=== PATIENT | female | born 1990 | race Caucasian/White ===

== ENCOUNTER 2017-11-20 18:51 | Emergency (ER) | payer BC ==
[2017-11-20] MEDS ORDERED: SODIUM CHLORIDE 0.9% 500 ML IV ONE (21:29)
[2017-11-20 22:12] LABS: Basophils # (A) 0.1 k/uL (0-0.2); Basophils % (A) 0 %; Eosinophils # (A) 0.1 k/uL (0-0.7); Eosinophils % (A) 1 %; HCT 39.1 % (34.0-46.0); HGB 12.8 gm/dL (11.4-16.0); Lymphocytes # (A) 3.1 k/uL (1.0-4.8); Lymphocytes % (A) 21 %; MCH 25.5 pg (25.0-35.0); MCHC 32.8 g/dL (31.0-37.0); MCV 77.7 fL (80.0-100.0); Mean Platelet Volume 6.6; Monocytes # (A) 0.7 k/uL (0-1.0); Monocytes % (A) 5 %; Neutrophils # (A) 10.2 k/uL (1.3-7.7); Neutrophils % (A) 71 %; Platelet Count 410 k/uL (150-450); RBC 5.04 m/uL (3.80-5.40); RDW 14.2 % (11.5-15.5); WBC 14.4 k/uL (3.8-10.6)
[2017-11-20 22:18] LABS: Appearance,Urine Cloudy (Clear); Bacteria,Urine Occasional /hpf; Bilirubin,Urine Negative (Negative); Blood,Urine Trace (Negative); Color,Urine Yellow; Glucose,Urine (UA) Negative (Negative); Ketones,Urine Negative (Negative); Leukocyte Esterase,Urine Trace (Negative); Mucus,Urine Occasional /hpf; Nitrite,Urine Negative (Negative); PH, Urine 5.5 (5.0-8.0); Protein,Urine Negative (Negative); RBC,Urine 1 /hpf (0-5); Specific Gravity,Urine 1.012 (1.001-1.035); Squamous Epithelial Cell,Urine 2 /hpf (0-4); Urobilinogen,Urine <2.0 mg/dL (<2.0); WBC,Urine 2 /hpf (0-5)
--- NOTE | 2017-11-20 22:27 | ED ---
Chest Pain HPI - General Chief Complaint: Chest Pain Stated Complaint: Chest pain Time Seen by Provider: 11/20/17 20:12 Source: patient Mode of arrival: ambulatory Limitations: no limitations - History of Present Illness Initial Comments: 27-year-old female patient presents the emergency department today for evaluation of substernal chest pain. Patient states that the pain started earlier today. Patient states she became worried when she started to have tingling from her elbow down to her fingertips. Patient denies any shortness of breath with this. States she has been nauseated for the last couple of weeks. She denies any heartburn. Only past medical history is asthma for which takes Singulair, albuterol, Flonase, and Sabrina. She states that she has not been having problems with her asthma. Denies any cough or congestion. She has not had any fevers or chills. Denies any abdominal pain or back pain. She denies any recent travel or long car rides. Denies use of control, states she stopped taking in August. Denies any calf pain or tenderness. She states she did see her primary care physician for her episodes similar to this a few months ago and with this episode and she told her it was related to anxiety and started her on BuSpar. Patient states she has been stressed out recently but does not feel particularly anxious. Patient denies any recent rash , diarrhea, constipation, back pain, dizziness, weakness, hematuria, dysuria, urinary urgency, urinary frequency, headache, visual changes, or any other complaints. - Related Data Home Medications Medication Instructions Recorded Confirmed Fexofenadine HCl [Sabrina Allergy] 180 mg PO DAILY 10/07/13 11/20/17 Fluticasone Propionate [Flonase] 1 spray EA NOSTRIL BID 10/07/13 11/20/17 Montelukast Sodium [Singulair] 10 mg PO HS 10/07/13 11/20/17 Fluticasone/Vilanterol [Breo 1 puff INHALATION RT-DAILY 11/20/17 11/20/17 Ellipta 100-25 Mcg Inhaler] Folic Acid 1 mg PO DAILY 11/20/17 11/20/17 busPIRone HCl [Buspar] 10 mg PO BID PRN 11/20/17 11/20/17 Allergies Allergy/AdvReac Type Severity Reaction Status Date / Time No Known Allergies Allergy Verified 11/20/17 20:20 Review of Systems ROS Statement: Those systems with pertinent positive or pertinent negative responses have been documented in the HPI. ROS Other: All systems not noted in ROS Statement are negative. EKG Findings - EKG Comments: EKG Findings:: EKG obtained at 1904 shows sinus rhythm with marked sinus arrhythmia. Ventricular rate is 86, VA interval 128, QR baptism 78, QT 356 , QTC 426. No evidence of ST elevation or depression. Past Medical History Past Medical History: Asthma History of Any Multi-Drug Resistant Organisms: None Reported Past Surgical History: No Surgical Hx Reported Past Psychological History: Anxiety Smoking Status: Never smoker Past Alcohol Use History: None Reported Past Drug Use History: None Reported General Exam Limitations: no limitations General appearance: alert, in no apparent distress, other (This is a well- developed, well-nourished adult female patient in no acute distress. Vital signs upon presentation are temperature 98.6F, pulse 112, respirations 20, blood pressure 175/135, pulse ox 99% on room air.) Eye exam: Present: normal appearance, PERRL, EOMI. Absent: scleral icterus, conjunctival injection, periorbital swelling ENT exam: Present: normal exam, normal oropharynx, mucous membranes moist Respiratory exam: Present: normal lung sounds bilaterally. Absent: respiratory distress, wheezes, rales, rhonchi, stridor, chest wall tenderness Cardiovascular Exam: Present: normal rhythm, tachycardia, normal heart sounds. Absent: systolic murmur, diastolic murmur, rubs, gallop, clicks GI/Abdominal exam: Present: soft, normal bowel sounds. Absent: distended, tenderness, guarding, rebound, rigid Neurological exam: Present: alert, oriented X3, CN II-XII intact Psychiatric exam: Present: normal affect, normal mood Skin exam: Present: warm, dry, intact, normal color. Absent: rash Course Vital Signs 11/20/17 11/20/17 11/20/17 18:54 22:01 22:58 Temperature 98.6 F Pulse Rate 112 H 83 73 Respiratory 20 18 18 Rate Blood Pressure 175/135 142/100 144/89 O2 Sat by Pulse 99 97 100 Oximetry 11/20/17 23:52 Temperature 98.4 F Pulse Rate 80 Respiratory 16 Rate Blood Pressure 137/88 O2 Sat by Pulse 97 Oximetry Chest Pain MDM - [facility] RADIOLOGY:Two-view x-ray of the chest was obtained. Heart and mediastinum are normal. Lungs are clear. Diaphragm is normal. There are chest leads. Impression by Dr. Beasley shows all chest with no change. MDM: 27-year-old female patient presented to the emergency department today for evaluation of crampy chest pain been going on since Friday. Patient states that the pain was intermittent since then. Patient does have history of anxiety and is treated with BuSpar. She has one episode similar to this in the past. Physical examination is unremarkable. Chest x-ray shows no acute cardiopulmonary process. Labs reviewed and were unremarkable. Troponin was negative. D-dimer is negative. I did discuss results and findings with the patient. We did discuss anxiety versus GERD versus muscle spasms as a cause for her pain. She is instructed to follow-up with her primary care physician for further evaluation as soon as possible. Return parameters discussed in detail. She verbalizes understanding and agrees this plan. Disposition Clinical Impression: Chest pain Disposition: HOME SELF-CARE Condition: Good Instructions: Chest Pain (ED) Additional Instructions: Follow-up with her primary care physician for recheck in 1-2 days. Return here immediately for any new, worsening, or concerning symptoms. Is patient prescribed a controlled substance at d/c from ED?: No Referrals: Isabella Husain DO [Primary Care Provider] - 1-2 days Time of Disposition: 23:47
[2017-11-20 22:28] LABS: D-Dimer 0.31 mg/L FEU (<0.60); Partial Thromboplastin Time 26.9 sec (22.0-30.0); Prothrombin Time 10.1 sec (9.0-12.0)
[2017-11-20 22:35] LABS: Creatine Kinase 47 U/L (30-135)
[2017-11-20 22:37] LABS: ALT 31 U/L (9-52); AST 13 U/L (14-36); Albumin 4.2 g/dL (3.5-5.0); Alkaline Phosphatase 112 U/L (38-126); Anion Gap 11 mmol/L; Blood Urea Nitrogen 10 mg/dL (7-17); Calcium 9.4 mg/dL (8.4-10.2); Carbon Dioxide 23 mmol/L (22-30); Chloride 106 mmol/L (98-107); Glucose 87 mg/dL (74-99); Potassium 4.3 mmol/L (3.5-5.1); Sodium 140 mmol/L (137-145); Total Bilirubin 0.4 mg/dL (0.2-1.3); Total Protein 6.8 g/dL (6.3-8.2)
--- NOTE | 2017-11-20 22:45 | XR ---
EXAMINATION TYPE: XR chest 2V DATE OF EXAM: 11/20/2017 COMPARISON: 09/24/2015 HISTORY: Chest pain TECHNIQUE: Frontal and lateral views of the chest are obtained. FINDINGS: Heart and mediastinum are normal. Lungs are clear. Diaphragm is normal. There are chest le ads. IMPRESSION: Normal chest. No change.
[2017-11-20 22:47] LABS: Creatine Kinase MB 0.4 ng/mL (0.0-2.4); Troponin I <0.012 ng/mL (0.000-0.034)
[2017-11-21] VITALS: BP 137/88; PULSE 80; RESP 16; TEMP 98.4
== END 2017-11-20 23:55 | disposition home or self-care (01) ==
LOC: EC 18:51
DX: R07.9 Chest pain, unspecified (principal); F41.9 Anxiety disorder, unspecified; R11.0 Nausea; J45.909 Unspecified asthma, uncomplicated; Z79.51 Long term (current) use of inhaled steroids; Z79.899 Other long term (current) drug therapy
CPT/HCPCS: 36415; 71046; 80053; 81001; 81025; 82550; 82553; 84484; 85025; 85379; 85610; 85730; 93005; 96360; 96361; 99285

== ENCOUNTER → 2018-04-29 | Outpatient (CLI) | payer BC ==
[2018-04-29 18:30] LABS: HCT 43.2 % (34.0-46.0); HGB 14.3 gm/dL (11.4-16.0); MCH 26.4 pg (25.0-35.0); MCHC 33.1 g/dL (31.0-37.0); MCV 79.6 fL (80.0-100.0); Platelet Count 441 k/uL (150-450); RBC 5.42 m/uL (3.80-5.40); RDW 14.8 % (11.5-15.5); WBC 9.9 k/uL (3.8-10.6)
== END | disposition home or self-care (01) ==
LOC: LABWHC1 17:03
PROVIDERS: ATTEND Obstetrics & Gynecology
DX: Z34.01 Encounter for supervision of normal first pregnancy, first trimester (principal)
CPT/HCPCS: 36415; 82565; 82947; 85027; 86762; 86780; 86850; 86900; 86901; 87340

== ENCOUNTER 2018-09-03 16:53 | Outpatient (CLI) | payer BC ==
[2018-09-03 17:54] VITALS: BP 136/84; PULSE 99; RESP 16; TEMP 97.7
--- NOTE | 2018-09-03 20:58 | P.MSEPDOC ---
Presenting Problems - Arrival Data Date of Arrival on Unit: 09/03/18 Time of Arrival on Unit: 16:53 Mode of Transport: Ambulatory - Complaint OB-Reason for Admission/Chief Complaint: PIH Medical History - Information : 1 Para: 0 Term: 0 : 0 Abortions: Spontaneous or Elective: 0 Number of Living Children: 0 - Gestational Age Gestational Age by SHAAN (wks/days): 28 Weeks and 3 Days - History Comment: "fetus has small abd per U/S at [facility]" Review of Systems - Review of Systems Constitutional: No problems Breast: No problems ENT: No problems Cardiovascular: No problems Respiratory: No problems Gastrointestinal: No problems Genitourinary: No problems Musculoskeletal: No problems Neurological: No problems Skin: No problems Vital Signs - Temperature Temperature: 97.7 F Temperature Source: Temporal Artery Scan - Pulse Right Sitting Pulse Rate: 99 Pulse Assessment Method: Automatic Cuff - Respirations Respiratory Rate: 16 Oxygen Delivery Method: Room Air - Blood Pressure Right Arm Blood Pressure: 136/84 Blood Pressure Mean: 101 Blood Pressure Source: Automatic Cuff Medical Screen Scoring (Pre) - Cervical Exam Dilation: Exam Deferred Effacement: Exam Deferred Membranes: Intact - Uterine Contractions Frequency: N/A Duration: N/A Intensity: N/A - Maternal Vital Signs Maternal Temperature: N/A Maternal Blood Pressure: N/A Signs of Preeclampsia: N/A Maternal Respirations: N/A - Pain Assessment Pain Intensity: 0 Pain Behavior: None Exhibited - Maternal Trauma Maternal Trauma: N/A - Assessment Baseline FHR: 135 Heart Rate - NICHD Category: Category I (Normal) = 0 NST: Reactive Position: N/A Station: N/A - Total Score Total Score (Pre): 0 - Level of Risk Level of Risk: Low (0-5) Physician Notification (Pre) - Physician Notified Physician Notified Date: 09/03/18 Physician Notified Time: 17:50 Physician/Practitioner Notifed:: Kenan Urbina Order Received: Yes (d/c home) Disposition - Disposition OB Disposition: Discharge to home Discharge Date: 09/03/18 Discharge Time: 17:55 I agree with the RN Medical Screening Exam: Yes Risk & Benefit of care provided described in d/c instruction: Yes Diagnosis: 28 WEEKS GESTATION OF
== END 2018-09-03 17:55 | disposition home or self-care (01) ==
LOC: FBPOP 16:53
PROVIDERS: ATTEND Obstetrics & Gynecology
DX: O13.3 Gestational [pregnancy-induced] hypertension without significant proteinuria, third trimester (principal); Z3A.28 28 weeks gestation of pregnancy
CPT/HCPCS: 59025; 99213

== ENCOUNTER 2018-09-17 11:47 | Outpatient (CLI) | payer BC ==
[2018-09-17 12:48] LABS: Appearance,Urine Cloudy (Clear); Bacteria,Urine Rare /hpf; Bilirubin,Urine Negative (Negative); Blood,Urine Negative (Negative); Color,Urine Light Yellow; Glucose,Urine (UA) Negative (Negative); Ketones,Urine Negative (Negative); Leukocyte Esterase,Urine Small (Negative); Nitrite,Urine Negative (Negative); Protein,Urine Negative (Negative); Specific Gravity,Urine 1.004 (1.001-1.035); Squamous Epithelial Cell,Urine 11 /hpf (0-4); Urobilinogen,Urine <2.0 mg/dL (<2.0); WBC,Urine 3 /hpf (0-5)
[2018-09-17 13:03] VITALS: BP 132/84; PULSE 96; RESP 20; TEMP 98.2
[2018-09-17] MEDS ORDERED: ACETAMINOPHEN TAB 325 MG TAB PO STA (13:04)
[2018-09-17 13:16] LABS: Basophils % (A) 0 %; Eosinophils # (A) 0.1 k/uL (0-0.7); Eosinophils % (A) 1 %; HCT 39.2 % (34.0-46.0); HGB 12.7 gm/dL (11.4-16.0); Lymphocytes # (A) 2.5 k/uL (1.0-4.8); Lymphocytes % (A) 17 %; MCH 27.4 pg (25.0-35.0); MCHC 32.4 g/dL (31.0-37.0); MCV 84.8 fL (80.0-100.0); Mean Platelet Volume 7.2; Monocytes # (A) 0.5 k/uL (0-1.0); Monocytes % (A) 4 %; Neutrophils % (A) 77 %; Platelet Count 389 k/uL (150-450); RBC 4.63 m/uL (3.80-5.40); RDW 14.1 % (11.5-15.5); WBC 14.4 k/uL (3.8-10.6)
[2018-09-17 13:26] LABS: ALT 29 U/L (9-52); AST 17 U/L (14-36); Blood Urea Nitrogen 5 mg/dL (7-17); LDH 492 U/L (313-618); Uric Acid 4.2 mg/dL (3.7-7.4)
--- NOTE | 2018-09-17 17:06 | P.MSEPDOC ---
Presenting Problems - Arrival Data Date of Arrival on Unit: 09/17/18 Time of Arrival on Unit: 10:27 Mode of Transport: Ambulatory - Complaint Comment: pt seen in office for a b/p check and pt c/o a headache. pt sent over to triage from Dr. Miller to be evualted Medical History - Information : 1 Para: 0 Term: 0 : 0 Abortions: Spontaneous or Elective: 0 Number of Living Children: 0 - Gestational Age Gestational Age by SHAAN (wks/days): 30 Weeks and 3 Days Review of Systems - Review of Systems Constitutional: No problems Breast: No problems ENT: No problems Cardiovascular: No problems Respiratory: No problems Gastrointestinal: No problems Genitourinary: No problems Musculoskeletal: No problems Neurological: No problems Skin: No problems Vital Signs - Temperature Temperature: 98.2 F Temperature Source: Oral - Pulse Right Brachial Pulse Rate: 96 Pulse Assessment Method: Automatic Cuff - Respirations Respiratory Rate: 20 Oxygen Delivery Method: Room Air - Blood Pressure Right Arm Blood Pressure: 132/84 Blood Pressure Mean: 100 Blood Pressure Source: Automatic Cuff Medical Screen Scoring (Pre) - Cervical Exam Dilation: Exam Deferred Effacement: Exam Deferred Membranes: Intact - Uterine Contractions Frequency: N/A Duration: N/A Intensity: N/A - Maternal Vital Signs Maternal Temperature: N/A Maternal Blood Pressure: N/A Signs of Preeclampsia: Headache = 1, Nausea/Vomiting = 1 Maternal Respirations: N/A - Pain Assessment Pain Location and Character: Head Pain Scale Used: Numeric (1 - 10) Pain Intensity: 6 Pain Management Goal: 2 Pain Description: Throbbing Pain Radiation Location: n/a Pain Frequency: Constant Pain Behavior: Vocalization Pain Aggravating Factors: Activity Non-Pharmacological Interventions: Reduce Environmental Stimuli - Maternal Trauma Maternal Trauma: N/A - Assessment Baseline FHR: 130 Heart Rate - NICHD Category: Category I (Normal) = 0 - Total Score Total Score (Pre): 2 Medical Screen Scoring (Post) - Post Treatment Level of Risk Post Treatment Level of Risk: Low (0-5) Physician Notification (Post) - Physician Notified Physician Notified Date: 09/17/18 Physician Notified Time: 14:45 Spoke With: dr miller New Order Received: Yes - Notification Comment Comment: NST reactive B/P 137/[address] Miller. May discharge to home undelivered with instructions and to keep nexrt scheduled appointment with Dr Grayson Disposition - Disposition OB Disposition: Discharge to home Discharge Date: 09/17/18 Discharge Time: 14:48 I agree with the RN Medical Screening Exam: Yes Risk & Benefit of care provided described in d/c instruction: Yes Diagnosis: GESTATIONAL HTN W/O SIGNIFICANT PROTEINURIA, THIRD TRIMESTER
== END 2018-09-17 14:48 | disposition home or self-care (01) ==
LOC: FBPOP 11:47
PROVIDERS: ATTEND Obstetrics & Gynecology
DX: O13.3 Gestational [pregnancy-induced] hypertension without significant proteinuria, third trimester (principal); Z3A.30 30 weeks gestation of pregnancy
CPT/HCPCS: 59025; 81001; 82565; 82570; 83615; 84156; 84450; 84460; 84520; 84550; 85025; 99215

== ENCOUNTER 2018-09-20 20:50 | Observation (INO) | payer BC ==
[2018-09-20] MEDS ORDERED: ACETAMINOPHEN TAB 500 MG TAB PO PRN (22:10)
[2018-09-20 22:15] VITALS: BMI 47.3
[2018-09-20 22:46] LABS: Basophils % (A) 0 %; Eosinophils # (A) 0.1 k/uL (0-0.7); Eosinophils % (A) 1 %; HCT 42.2 % (34.0-46.0); HGB 14.1 gm/dL (11.4-16.0); Lymphocytes % (A) 23 %; MCH 28.5 pg (25.0-35.0); MCHC 33.4 g/dL (31.0-37.0); MCV 85.3 fL (80.0-100.0); Mean Platelet Volume 6.7; Monocytes # (A) 0.7 k/uL (0-1.0); Monocytes % (A) 5 %; Neutrophils # (A) 9.3 k/uL (1.3-7.7); Neutrophils % (A) 69 %; Platelet Count 408 k/uL (150-450); RBC 4.95 m/uL (3.80-5.40); RDW 14.2 % (11.5-15.5); WBC 13.5 k/uL (3.8-10.6)
[2018-09-20 22:59] LABS: ALT 22 U/L (9-52); AST 13 U/L (14-36); Blood Urea Nitrogen 6 mg/dL (7-17); LDH 320 U/L (313-618); Uric Acid 3.8 mg/dL (3.7-7.4)
[2018-09-21 00:04] LABS: Appearance,Urine Clear (Clear); Bilirubin,Urine Negative (Negative); Blood,Urine Negative (Negative); Color,Urine Yellow; Glucose,Urine (UA) Negative (Negative); Ketones,Urine Negative (Negative); Leukocyte Esterase,Urine Negative (Negative); Nitrite,Urine Negative (Negative); Protein,Urine Negative (Negative); Specific Gravity,Urine 1.016 (1.001-1.035); Urobilinogen,Urine <2.0 mg/dL (<2.0)
[2018-09-21 08:39] VITALS: BP 122/74; PULSE 91; RESP 16; TEMP 96.6
--- NOTE | 2018-09-21 08:43 | P.HPOB ---
History of Present Illness H&P Date: 09/21/18 Chief Complaint: hypertension at home 28 year old presented to triage at 30 weeks 6 days complaining of increased BP at home. She has been checking her BP at home with a wrist cuff since a visit with [facility] where her BP was slightly elevated. She says last night it was 150/90 and so she came in. She has intermittent headaches but no vision changes or RUQ pain. good movement. no contractions. FHTs 130's with moderate variability and accels. Dr Leiva admitted her to watch her BPs overnight. Labs were drawn and normal. Review of Systems All systems: negative Constitutional: Denies chills, Denies fever Eyes: denies blurred vision, denies pain Ears, nose, mouth and throat: Denies headache, Denies sore throat Cardiovascular: Denies chest pain, Denies shortness of breath Respiratory: Denies cough Gastrointestinal: Denies abdominal pain, Denies diarrhea, Denies nausea, Denies vomiting Genitourinary: Denies dysuria, Denies hematuria Musculoskeletal: Denies myalgias Integumentary: Denies pruritus, Denies rash Neurological: Denies numbness, Denies weakness Psychiatric: Denies anxiety, Denies depression Endocrine: Denies fatigue, Denies weight change Past Medical History Past Medical History: Asthma History of Any Multi-Drug Resistant Organisms: None Reported Past Surgical History: No Surgical Hx Reported Past Anesthesia/Blood Transfusion Reactions: No Reported Reaction Past Psychological History: Anxiety Smoking Status: Never smoker Past Alcohol Use History: None Reported Past Drug Use History: None Reported - Past Family History Father Family Medical History: Diabetes Mellitus Medications and Allergies Home Medications Medication Instructions Recorded Confirmed Type Montelukast Sodium [Singulair] 10 mg PO HS 10/07/13 09/20/18 History Fluticasone/Vilanterol [Breo 1 puff INHALATION RT-DAILY 11/20/17 09/20/18 History Ellipta 100-25 Mcg Inhaler] Fexofenadine HCl [Sabrina Allergy] 60 tab PO DAILY 09/20/18 09/20/18 History Allergies Allergy/AdvReac Type Severity Reaction Status Date / Time No Known Allergies Allergy Verified 09/20/18 20:58 Exam Osteopathic Statement: *. No significant issues noted on an osteopathic structural exam other than those noted in the History and Physical/Consult. Vital Signs Temp Pulse Resp BP Pulse Ox 09/21/18 08:00 96.6 F L 91 16 122/74 09/21/18 04:00 88 14 109/59 09/21/18 00:00 97.2 F L 85 16 139/83 09/20/18 22:08 97.3 F L 91 16 120/66 09/20/18 21:40 88 121/81 09/20/18 21:01 97.3 F L 102 H 18 126/83 97 Intake and Output 09/20/18 09/21/18 09/21/18 22:59 06:59 14:59 Other: # Voids 1 1 Weight 125.191 kg Heart: Regular rate and rhythm Lungs: Clear to auscultation bilaterally Abdomen: Soft, nontender Extremities: Negative Homans sign Results Result Diagrams: 09/20/18 22:31 09/20/18 22:31 Abnormal Lab Results - Last 24 Hours (Table) 09/20/18 09/20/18 09/20/18 Range/Units 22:31 22:31 23:34 WBC 13.5 H (3.8-10.6) k/uL Neutrophils # 9.3 H (1.3-7.7) k/uL BUN 6 L (7-17) mg/dL Creatinine 0.40 L (0.52-1.04) mg/dL AST 13 L (14-36) U/L U Random Total Protein 17 H (<12) mg/dL Assessment and Plan (1) Gestational hypertension Current Visit: Yes Status: Acute Code(s): O13.9 - GESTATIONAL HTN W/O SIG NIFICANT PROTEINURIA, UNSP TRIMESTER SNOMED Code(s): 824079442 Plan: 1. Patient was admitted to [facility] by Dr. Leiva to monitor her blood pressures and do a 24-hour urine protein
--- NOTE | 2018-09-21 08:47 | P.DS ---
Providers Date of admission: 09/20/18 21:44 Expected date of discharge: 09/21/18 Attending physician: Ni Grayson Primary care physician: Steven Leiva - Discharge Diagnosis(es) (1) Gestational hypertension Current Visit: Yes Status: Ruled-out (2) 30 weeks gestation of Current Visit: Yes Status: Acute Hospital Course: Patient was admitted after at home she had a blood pressure of 150/90 on her wrist cuff. Her blood pressures and patient had ranged from 109-139/59-83. T hese are all within normal limits. The baby has had a category 1 tracing for her entire stay. I had the RN take a blood pressure with her wrist cuff and take a blood pressure with our blood pressure machine that fit her appropriately. The blood pressure on her wrist cuff was 150s over 100s and moments later with the appropriate fitting cuff it was 134/72. This is evidence that her blood pressure cuff is not accurate and I encouraged her to find one that is appropriate for the size of her arm. I am seeing her in 2 days and will recheck her blood pressure then. Patient Condition at Discharge: Stable Plan - Discharge Summary New Discharge Prescriptions: No Action Montelukast Sodium [Singulair] 10 mg PO HS Fluticasone/Vilanterol [Breo Ellipta 100-25 Mcg Inhaler] 1 puff INHALATION RT-DAILY Fexofenadine HCl [Sabrina Allergy] 60 tab PO DAILY Discharge Medication List Montelukast Sodium [Singulair] 10 mg PO HS 10/07/13 [History] Fluticasone/Vilanterol [Breo Ellipta 100-25 Mcg Inhaler] 1 puff INHALATION RT- DAILY 11/20/17 [History] Fexofenadine HCl [Sabrina Allergy] 60 tab PO DAILY 09/20/18 [History] Follow up Appointment(s)/Referral(s): Ni Grayson DO [Doctor of Osteopathic Medicine] - 09/23/18 Discharge Disposition: HOME SELF-CARE
== END 2018-09-21 10:15 | disposition home or self-care (01) ==
LOC: FBPOP 20:50 → 4FBP 21:44
PROVIDERS: ADMIT Obstetrics & Gynecology; ATTEND Obstetrics & Gynecology
DX: O13.3 Gestational [pregnancy-induced] hypertension without significant proteinuria, third trimester (principal); Z3A.30 30 weeks gestation of pregnancy; Z86.59 Personal history of other mental and behavioral disorders; O99.513 Diseases of the respiratory system complicating pregnancy, third trimester; J45.909 Unspecified asthma, uncomplicated; Z79.899 Other long term (current) drug therapy; Z79.51 Long term (current) use of inhaled steroids
CPT/HCPCS: 59025; 99213; 82570; 84156; 82565; 83615; 84450; 84460; 84520; 84550; 85025; 81003; G0378 ×2

== ENCOUNTER 2018-11-01 16:02 | Inpatient (IN) | payer BC ==
[2018-11-01] MEDS ORDERED: DINOPROSTONE 10 MG INSERT.ER VAGINAL ONE (16:32)
[2018-11-01] MEDS ORDERED: METHYLERGONOVINE 0.2 MG/ML 1 ML AMP IM PRN (16:33)
[2018-11-01] MEDS ORDERED: CARBOPROST TROMETHAMINE 250 MCG/ML 1 ML AMP IM PRN (16:33)
[2018-11-01] MEDS ORDERED: OXYTOCIN 10 UNIT/ML 1 ML VIAL IM PRN (16:33)
[2018-11-01] MEDS ORDERED: LIDOCAINE 0.5% (PF) 5 MG/ML (50 ML SDV) SQ PRN (16:33)
[2018-11-01] MEDS ORDERED: TERBUTALINE 1 MG/ML VIAL SQ PRN (16:33)
[2018-11-01] MEDS ORDERED: AMPICILLIN 2,000 MG in SODIUM CHLORIDE 0.9% 100 ML IVPB STA (16:36)
[2018-11-01 18:45] VITALS: BP 143/86; PULSE 113; RESP 18; TEMP 96.7; BMI 48.0
[2018-11-01] MEDS: OXYTOCIN 30 UNITS/500 ML NS 30 UNIT in SALINE 1 500ML.BAG IV SCH (21:23)
[2018-11-01] MEDS: LACTATED RINGERS 1,000 ML IV SCH (21:23)
[2018-11-01] MEDS: AMPICILLIN 1,000 MG in SODIUM CHLORIDE 0.9% 50 ML IVPB SCH (21:23)
[2018-11-02] MEDS: LACTATED RINGERS 1,000 ML IV SCH ×2 (06:04→06:10)
[2018-11-02] MEDS: AMPICILLIN 1,000 MG in SODIUM CHLORIDE 0.9% 50 ML IVPB SCH ×2 (06:10→08:49)
[2018-11-02] MEDS: OXYTOCIN 30 UNITS/500 ML NS 30 UNIT in SALINE 1 500ML.BAG IV SCH ×2 (06:18→07:11)
[2018-11-02 06:19] LABS: Basophils % (A) 0 %; Eosinophils # (A) 0.2 k/uL (0-0.7); Eosinophils % (A) 1 %; HCT 39.4 % (34.0-46.0); HGB 12.9 gm/dL (11.4-16.0); Lymphocytes # (A) 3.3 k/uL (1.0-4.8); Lymphocytes % (A) 24 %; MCHC 32.8 g/dL (31.0-37.0); MCV 82.3 fL (80.0-100.0); Mean Platelet Volume 7.6; Monocytes # (A) 0.6 k/uL (0-1.0); Monocytes % (A) 4 %; Neutrophils # (A) 9.5 k/uL (1.3-7.7); Neutrophils % (A) 70 %; Platelet Count 417 k/uL (150-450); RBC 4.79 m/uL (3.80-5.40); RDW 15.6 % (11.5-15.5); WBC 13.7 k/uL (3.8-10.6)
--- NOTE | 2018-11-02 14:06 | US ---
EXAMINATION TYPE: US OB limited DATE OF EXAM: 11/02/2018 COMPARISON: NONE CLINICAL HISTORY: ARNALDO. EXAM PERFORMED: Transabdominal (TA) GESTATIONAL AGE / DATING Physician Established: (37 weeks/0 days) EDC: 11/23/2018 No growth performed on today?s study per ordering physician SURVEY ARNALDO: 16.2 cm Normal (Tech?if abnormal transabdominally?image transvaginally to substantiate abnormality.) PRESENTATION: vertex LIE: Oblique OB limited for ARNALDO only Within the chart a documented heart rate of 136 bpm was identified. IMPRESSION: Amniotic fluid index is within normal limits calculated at 16.2. Heart rate of 136 bpm.
--- NOTE | 2018-11-06 08:23 | P.HPOB ---
History of Present Illness H&P Date: 11/01/18 Chief Complaint: Gestational hypertension, induction of labor 28-year-old presents at 36 weeks and 6 days for induction of labor to be done at 37 weeks for gestational hypertension. Her cervix is closed, 50% effaced, and -3 station. She is not priscila. heart tones were 130s with moderate variability and accelerations. Review of Systems All systems: negative Constitutional: Denies chills, Denies fever Eyes: denies blurred vision, denies pain Ears, nose, mouth and throat: Denies headache, Denies sore throat Cardiovascular: Denies chest pain, Denies shortness of breath Respiratory: Denies cough Gastrointestinal: Denies abdominal pain, Denies diarrhea, Denies nausea, Denies vomiting Genitourinary: Denies dysuria, Denies hematuria Musculoskeletal: Denies myalgias Integumentary: Denies pruritus, Denies rash Neurological: Denies numbness, Denies weakness Psychiatric: Denies anxiety, Denies depression Endocrine: Denies fatigue, Denies weight change Past Medical History Past Medical History: Asthma Additional Past Medical History / Comment(s): Obstetric history:. This is her first and she's had care with me since the first trimester. She's had gestational hypertension for the past few months. Her blood pressures have been 140s to 150s over 80s to 90s. Biophysical profiles and NSTs have been followed as well as preeclamptic labs. The labs have always been within normal limits. History of Any Multi-Drug Resistant Organisms: None Reported Past Surgical History: No Surgical Hx Reported Past Anesthesia/Blood Transfusion Reactions: No Reported Reaction Past Psychological History: Anxiety Smoking Status: Never smoker Past Alcohol Use History: None Reported Past Drug Use History: None Reported - Past Family History Father Family Medical History: Diabetes Mellitus Mother Family Medical History: No Reported History Medications and Allergies Home Medications Medication Instructions Recorded Confirmed Type Montelukast Sodium [Singulair] 10 mg PO HS 10/07/13 11/05/18 History Fluticasone/Vilanterol [Breo 1 puff INHALATION RT-DAILY 11/20/17 11/05/18 History Ellipta 100-25 Mcg Inhaler] Fexofenadine HCl [Sabrina Allergy] 60 tab PO DAILY 09/20/18 11/05/18 History Pnv,Calcium 72/Iron/Folic Acid 1 each PO DAILY 11/01/18 11/05/18 History [ Plus Tablet] Allergies Allergy/AdvReac Type Severity Reaction Status Date / Time No Known Allergies Allergy Verified 11/01/18 16:27 Exam Osteopathic Statement: *. No significant issues noted on an osteopathic structural exam other than those noted in the History and Physical/Consult. Heart: Regular rate and rhythm Lungs: Clear to auscultation bilaterally Abdomen: Soft, nontender Extremities: Negative Homans sign Results Result Diagrams: 11/02/18 06:04 Assessment and Plan (1) Gestational hypertension Status: Ruled-out Code(s): O13.9 - GESTATIONAL HTN W/O SIGNIFICANT PROTEINURIA, UNSP TRIMESTER SNOMED Code(s): 897229630 Plan: 1. Induction of labor with Cervidil and then Pitocin and amniotomy in the morning.
--- NOTE | 2018-11-06 08:26 | P.DS ---
Providers Date of admission: 11/01/18 16:02 Expected date of discharge: 11/02/18 Attending physician: Ni Grayson Primary care physician: Ni Grayson - Discharge Diagnosis(es) (1) Gestational hypertension Status: Acute Hospital Course: 28-year-old presented at 37 weeks for induction of labor. The Cervidil did not cause her to have any significant contractions so her cervix remained closed 50% effaced and -3 station in the morning. As unable to perform an amniotomy but Pitocin augmentation was given. She did have some contractions throughout the morning but after several hours of Pitocin she still did not make any cervical change. Her blood pressures were 120s to 140s over 60s to 90s. The heart tones were 130s with moderate variability and accelerations, no decelerations. She has a negative contraction stress test. Ultrasound was done for an ARNALDO which showed 15 cm of fluid. At this point I'm going to discharge her home to bring her back for induction later in the week. My thought processes is that hopefully by this time she will have some more contractions and possibly soften or dilate the cervix further in the next few days. Patient Condition at Discharge: Stable Plan - Discharge Summary Discharge Rx Participant: No New Discharge Prescriptions: No Action Montelukast Sodium [Singulair] 10 mg PO HS Fluticasone/Vilanterol [Breo Ellipta 100-25 Mcg Inhaler] 1 puff INHALATION RT-DAILY Fexofenadine HCl [Sabrina Allergy] 60 tab PO DAILY Pnv,Calcium 72/Iron/Folic Acid [ Plus Tablet] 1 each PO DAILY Discharge Medication List Montelukast Sodium [Singulair] 10 mg PO HS 10/07/13 [History] Fluticasone/Vilanterol [Breo Ellipta 100-25 Mcg Inhaler] 1 puff INHALATION RT- DAILY 11/20/17 [History] Fexofenadine HCl [Sabrina Allergy] 60 tab PO DAILY 09/20/18 [History] Pnv,Calcium 72/Iron/Folic Acid [ Plus Tablet] 1 each PO DAILY 11/01/18 [History] Follow up Appointment(s)/Referral(s): Ni Grayson, [Primary Care Provider] - 11/05/18 Discharge Disposition: HOME SELF-CARE
== END 2018-11-02 13:02 | disposition home or self-care (01) | DRG 833 ==
LOC: 4FBP 16:02
PROVIDERS: ADMIT Obstetrics & Gynecology; ATTEND Obstetrics & Gynecology
PROC: 3E0P7VZ Introduction of Hormone into Female Reproductive, Via Natural or Artificial Opening (ICD-10-PCS; principal; 2018-11-01)
PROC: 3E033VJ Introduction of Other Hormone into Peripheral Vein, Percutaneous Approach (ICD-10-PCS; 2018-11-01)
DX: O61.0 Failed medical induction of labor (principal); O13.3 Gestational [pregnancy-induced] hypertension without significant proteinuria, third trimester; O99.52 Diseases of the respiratory system complicating childbirth; J45.909 Unspecified asthma, uncomplicated; Z3A.37 37 weeks gestation of pregnancy; Z79.51 Long term (current) use of inhaled steroids; Z79.899 Other long term (current) drug therapy; Z83.3 Family history of diabetes mellitus; Z86.59 Personal history of other mental and behavioral disorders
CPT/HCPCS: 76815; 85025; 86850; 86900; 86901

== ENCOUNTER 2018-11-05 16:06 | Inpatient (IN) | payer BC ==
[2018-11-05] MEDS ORDERED: BUTORPHANOL 1 MG/ML 1 ML VIAL IV PRN (16:11)
[2018-11-05] MEDS ORDERED: DINOPROSTONE 10 MG INSERT.ER VAGINAL ONE (16:11)
[2018-11-05] MEDS ORDERED: ZOLPIDEM 5 MG TAB PO PRN (16:11)
[2018-11-05 16:30] VITALS: BMI 48.0
[2018-11-06] MEDS ORDERED: CARBOPROST TROMETHAMINE 250 MCG/ML 1 ML AMP IM PRN (05:36)
[2018-11-06] MEDS ORDERED: LIDOCAINE 0.5% (PF) 5 MG/ML (50 ML SDV) SQ PRN (05:36)
[2018-11-06] MEDS ORDERED: METHYLERGONOVINE 0.2 MG/ML 1 ML AMP IM PRN (05:36)
[2018-11-06] MEDS ORDERED: OXYTOCIN 10 UNIT/ML 1 ML VIAL IM PRN (05:36)
[2018-11-06] MEDS ORDERED: AMPICILLIN 2,000 MG in SODIUM CHLORIDE 0.9% 100 ML IVPB STA (05:36)
[2018-11-06] MEDS ORDERED: TERBUTALINE 1 MG/ML VIAL SQ PRN (05:36)
[2018-11-06] MEDS ORDERED: OXYTOCIN 30 UNITS/500 ML NS 30 UNIT in SALINE 1 500ML.BAG IV SCH (05:45)
[2018-11-06] MEDS: LACTATED RINGERS 1,000 ML IV SCH ×2 (06:20→16:01)
[2018-11-06 06:47] LABS: Basophils % (A) 0 %; Eosinophils # (A) 0.1 k/uL (0-0.7); Eosinophils % (A) 0 %; HCT 38.3 % (34.0-46.0); HGB 12.5 gm/dL (11.4-16.0); Lymphocytes # (A) 2.3 k/uL (1.0-4.8); Lymphocytes % (A) 16 %; MCH 27.4 pg (25.0-35.0); MCHC 32.5 g/dL (31.0-37.0); MCV 84.1 fL (80.0-100.0); Mean Platelet Volume 7.1; Monocytes # (A) 0.6 k/uL (0-1.0); Monocytes % (A) 4 %; Neutrophils # (A) 11.6 k/uL (1.3-7.7); Neutrophils % (A) 79 %; Platelet Count 400 k/uL (150-450); RBC 4.56 m/uL (3.80-5.40); RDW 14.6 % (11.5-15.5); WBC 14.8 k/uL (3.8-10.6)
--- NOTE | 2018-11-06 08:12 | P.HPOB ---
History of Present Illness H&P Date: 11/05/18 Chief Complaint: Induction of labor, gestational hypertension 28-year-old presents at 37 weeks and 5 days for induction of labor. She has gestational hypertension not requiring medication. Preeclamptic labs have been within normal limits. Her cervix is closed, 50% effaced, -2 station. She is not priscila. heart tones 130s with moderate variability and positive accelerations. Review of Systems All systems: negative Constitutional: Denies chills, Denies fever Eyes: denies blurred vision, denies pain Ears, nose, mouth and throat: Denies headache, Denies sore throat Cardiovascular: Denies chest pain, Denies shortness of breath Respiratory: Denies cough Gastrointestinal: Denies abdominal pain, Denies diarrhea, Denies nausea, Denies vomiting Genitourinary: Denies dysuria, Denies hematuria Musculoskeletal: Denies myalgias Integumentary: Denies pruritus, Denies rash Neurological: Denies numbness, Denies weakness Psychiatric: Denies anxiety, Denies depression Endocrine: Denies fatigue, Denies weight change Past Medical History Past Medical History: Asthma Additional Past Medical History / Comment(s): Obstetrics history: This is her first and she's had care with me since the first trimester. Blood type O+, antibodies negative, Hepatitis B negative, treponema antibody nonreactive, rubella immune, GBS positive. Her post pressure started to increase in the third trimester up to 140s 150s over 80s to 90s. She did not require any medication and eclamptic labs have always remains within normal limits. BPP's and NSTs were followed. History of Any Multi-Drug Resistant Organisms: None Reported Past Surgical History: No Surgical Hx Reported Additional Past Surgical History / Comment(s): chin surgery, age 10 Past Anesthesia/Blood Transfusion Reactions: No Reported Reaction Past Psychological History: Anxiety Smoking Status: Never smoker Past Alcohol Use History: None Reported Past Drug Use History: None Reported - Past Family History Father Family Medical History: Diabetes Mellitus Mother Family Medical History: No Reported History Medications and Allergies Home Medications Medication Instructions Recorded Confirmed Type Montelukast Sodium [Singulair] 10 mg PO HS 10/07/13 11/05/18 History Fluticasone/Vilanterol [Breo 1 puff INHALATION RT-DAILY 11/20/17 11/05/18 Hist ory Ellipta 100-25 Mcg Inhaler] Fexofenadine HCl [Sabrina Allergy] 60 tab PO DAILY 09/20/18 11/05/18 History Pnv,Calcium 72/Iron/Folic Acid 1 each PO DAILY 11/01/18 11/05/18 History [ Plus Tablet] Allergies Allergy/AdvReac Type Severity Reaction Status Date / Time No Known Allergies Allergy Verified 11/01/18 16:27 Exam Osteopathic Statement: *. No significant issues noted on an osteopathic struct ural exam other than those noted in the History and Physical/Consult. Vital Signs Temp Pulse Resp BP 11/05/18 16:07 96.8 F L 102 H 18 146/80 Intake and Output 11/05/18 11/06/18 11/06/18 22:59 06:59 14:59 Other: # Voids 1 2 Weight 127.006 kg Heart: Regular rate and rhythm Lungs: Clear to auscultation bilaterally Abdomen: Soft, nontender Extremities: Negative Homans sign Results Result Diagrams: 11/06/18 06:20 Abnormal Lab Results - Last 24 Hours (Table) 11/06/18 Range/Units 06:20 WBC 14.8 H (3.8-10.6) k/uL Neutrophils # 11.6 H (1.3-7.7) k/uL Assessment and Plan (1) Gestational hypertension Current Visit: No Status: Ruled-out Code(s): O13.9 - GESTATIONAL HTN W/O SIGNIFICANT PROTEINURIA, UNSP TRIMESTER SNOMED Code(s): 972630252 Plan: 1. Induction of labor with Cervidil and then Pitocin and amniotomy in the morning. 2. Antibiotics for GBS prophylaxis
[2018-11-06] MEDS: AMPICILLIN 1,000 MG in SODIUM CHLORIDE 0.9% 50 ML IVPB SCH ×4 (10:46→22:52)
[2018-11-07] MEDS ORDERED: BUTORPHANOL 1 MG/ML 1 ML VIAL IV PRN (01:52)
[2018-11-07] MEDS: LACTATED RINGERS 1,000 ML IV SCH ×2 (01:54→17:25)
[2018-11-07] MEDS: AMPICILLIN 1,000 MG in SODIUM CHLORIDE 0.9% 50 ML IVPB SCH (02:33)
[2018-11-07] MEDS ORDERED: CITRIC ACID-SODIUM CITRATE 15 ML CUP PO ONE (04:10)
[2018-11-07] MEDS ORDERED: ceFAZolin 3 GM in SODIUM CHLORIDE 0.9% 100 ML IVPB ONE (04:10)
[2018-11-07] MEDS ORDERED: OXYTOCIN 10 UNIT/ML 1 ML VIAL ONE (04:20)
[2018-11-07] MEDS ORDERED: DEXAMETHASONE SOD PHOS (MDV) 100 MG/10 ML VIAL ONE (04:20)
[2018-11-07] MEDS ORDERED: PHENYLEPHRINE-0.9% NACL SYG 1 MG/10 ML SYRINGE ONE (04:20)
[2018-11-07] MEDS ORDERED: MORPHINE SULFATE (PF) 0.3 MG/0.3 ML SYR ONE (04:20)
[2018-11-07] MEDS ORDERED: ONDANSETRON 4 MG/2 ML VIAL ONE (04:20)
[2018-11-07] MEDS ORDERED: ePHEDrine SULFATE/0.9% NACL/PF 50 MG/5 ML SYRINGE IV ONE (04:20)
[2018-11-07] MEDS ORDERED: KETOROLAC 30 MG/ML 1 ML VIAL ONE (04:20)
[2018-11-07] MEDS ORDERED: METOCLOPRAMIDE 5 MG/ML 2 ML VIAL IVP PRN (05:00)
[2018-11-07] MEDS ORDERED: diphenhydrAMINE 25 MG CAP PO PRN (05:00)
[2018-11-07] MEDS ORDERED: diphenhydrAMINE 50 MG CAP PO PRN (05:00)
[2018-11-07] MEDS ORDERED: OXYTOCIN 20 UNITS/1000 ML NS 1,000 ML IV SCH (05:00)
[2018-11-07] MEDS ORDERED: ACETAMINOPHEN TAB 325 MG TAB PO PRN (05:00)
[2018-11-07] MEDS ORDERED: ONDANSETRON 4 MG/2 ML VIAL IVP PRN (05:00)
[2018-11-07] MEDS ORDERED: NALOXONE 0.4 MG/ML 1 ML VIAL IV PRN (05:00)
[2018-11-07] MEDS ORDERED: LANOLIN CREAM 5 GM TUBE TOPICAL PRN (05:00)
[2018-11-07] MEDS ORDERED: diphenhydrAMINE 50 MG/ML 1 ML VIAL IVP PRN ×2 (05:00)
--- NOTE | 2018-11-07 05:05 | P.OP ---
Date of Procedure: 11/07/18 Preoperative Diagnosis: 1. at 37 weeks and 6 days 2. Gestational hypertension 3. Failed induction of labor Postoperative Diagnosis: 1. at 37 weeks and 6 days 2. Gestational hypertension 3. Failed induction of labor Procedure(s) Performed: Primary low transverse Anesthesia: spinal Surgeon: Ni Grayson Classified Advertising Clerk #1: Caroline Mello Estimated Blood Loss (ml): 500 IV fluids (ml): 500 Urine output (ml): 100 Pathology: other (Placenta) Condition: stable Disposition: floor Indications for Procedure: 28-year-old presented at 37weeks and 5 days for a 2-stage induction of la bor. Her cervix was closed, 50% effaced, and -3 station. After Cervidil she was fingertip dilated Pitocin was started. Amniotomy was performed 11:55 AM and clear fluid noted. After several hours of Pitocin augmentation and few doses of Stadol the patient did not make it past 2 cm dilated, 90% effaced, and -2 station. heart tones were 135 with moderate variability and accelerations. Informed consent was obtained and section was called. Operative Findings: Viable female, Apgars 9, 9, weight 5 lbs. 5 oz. Normal uterus, tubes, ovaries. Description of Procedure: Patient was taken to the operating room where spinal anesthesia was found be adequate. She was prepped and draped in normal sterile fashion in dorsal supine position with a leftward tilt. Pfannenstiel skin incision was made the scalpel and carried through to the underlying layer of fascia with the scalpel. Fascia was incised in midline and carried bilaterally with the Munroe scissors. The superior aspect of the fascial incision was grasped with Yancy clamps elevated and the underlying rectus muscles dissected off with the Munroe's. Attention was then turned to inferior aspect of same incision which in a similar fashion was grasped tented up and the underlying rectus muscles dissected off with the Munroe's. The rectus muscles were the midline and the peritoneum was identified tented up and entered sharply with the scalpel. The incision was extended superiorly and inferiorly with good visualization of the bladder. The Kp retractor was placed. A low transverse incision was then made on the uterus with the scalpel. This was carried bilaterally and digital manner. 's head delivered atraumatically, nose and mouth bulb suctioned, cord clamped and cut, handed off to waiting nurses. Apgars 9,9, weight 5 lbs. 5 oz. Placenta delivered manually, intact with three-vessel cord. The uterus is exteriorized and cleared of all clots and debris. The uterine incision was closed with 0 Vicryl in a running locked fashion. Second layer of the same sutures used in imbricating fashion to obtain excellent hemostasis. The fascia was reapproximated using 0 Vicryl in a running fashion. The subcutaneous tissues closed with 3-0 Vicryl running fashion. The skin was closed dodie. Patient tolerated the procedure well, sponge and instrument counts were correct times 2 and she was taken to the recovery room in stable condition.
[2018-11-07] MEDS: SENNOSIDES-DOCUSATE SODIUM 1 EACH TAB PO SCH ×2 (08:00→23:31)
[2018-11-07] MEDS: KETOROLAC 30 MG/ML 1 ML VIAL IVP PRN ×2 (17:32→23:29)
[2018-11-08] MEDS: HYDROcodone/APAP 7.5-325MG 1 EACH TAB PO PRN ×3 (03:57→17:24)
--- NOTE | 2018-11-08 06:48 | P.PNOBGPC ---
Subjective - Subjective Principal diagnosis: Status post primary low transverse postoperative day #1 Interval history: Patient seen and examined. Denies nausea, vomiting, chest pain, shortness of breath or calf pain. Patient reports: Reports appetite normal, Reports voiding normally, Reports pain well controlled, Reports ambulating normally [place]: doing well Objective - Vital Signs Latest vital signs: Vital Signs Temp Pulse Resp BP Pulse Ox 11/08/18 04:00 98.2 F 65 16 128/75 97 11/08/18 00:00 98.4 F 82 16 125/70 98 11/07/18 20:00 98.3 F 80 16 132/72 98 11/07/18 16:00 98.1 F 89 18 118/61 97 11/07/18 12:30 97.8 F 91 18 139/75 97 11/07/18 07:03 98 F 78 16 138/74 97 Intake and Output 11/07/18 11/07/18 11/08/18 14:59 22:59 06:59 Intake Total 1000 Output Total 1000 Balance 0 Intake: IV 1000 Invasive Line 1 1000 Output: Urine 1000 Uretheral (Jackson) 600 Other: # Voids 1 - Exam Lungs: bilateral: normal Chest: Normal S1, Normal S2 Extremities: Present: normal Abdomen: Present: normal appearance, soft. Absent: distention, tenderness Incision: Present: normal, dry, intact Uterus: Present: normal, firm Assessment and Plan (1) Gestational hypertension Current Visit: No Status: Resolved Code(s): O13.9 - GESTATIONAL HTN W/O SIGNIFICANT PROTEINURIA, UNSP TRIMESTER SNOMED Code(s): 206727219 (2) Status post primary low transverse section Current Visit: Yes Status: Acute Code(s): Z98.891 - HISTORY OF UTERINE SCAR FROM PREVIOUS SURGERY SNOMED Code(s): 653723961 Plan: 1. Increase ambulation 2. Regular diet with flatus 3. By mouth pain meds
[2018-11-08] MEDS: IBUPROFEN 600 MG TAB PO PRN ×3 (06:53→19:37)
[2018-11-08 07:01] LABS: Basophils % (A) 0 %; Eosinophils # (A) 0.1 k/uL (0-0.7); Eosinophils % (A) 1 %; HCT 36.1 % (34.0-46.0); HGB 11.8 gm/dL (11.4-16.0); Lymphocytes # (A) 2.3 k/uL (1.0-4.8); Lymphocytes % (A) 17 %; MCH 27.5 pg (25.0-35.0); MCHC 32.7 g/dL (31.0-37.0); MCV 84.1 fL (80.0-100.0); Mean Platelet Volume 7.1; Monocytes # (A) 0.8 k/uL (0-1.0); Monocytes % (A) 6 %; Neutrophils # (A) 10.3 k/uL (1.3-7.7); Neutrophils % (A) 75 %; Platelet Count 376 k/uL (150-450); RDW 14.6 % (11.5-15.5); WBC 13.7 k/uL (3.8-10.6)
[2018-11-08] MEDS: SENNOSIDES-DOCUSATE SODIUM 1 EACH TAB PO SCH ×2 (10:28→19:37)
[2018-11-09] MEDS: HYDROcodone/APAP 7.5-325MG 1 EACH TAB PO PRN ×3 (00:21→17:05)
[2018-11-09] MEDS: IBUPROFEN 600 MG TAB PO PRN ×3 (06:02→23:18)
[2018-11-09] MEDS: SENNOSIDES-DOCUSATE SODIUM 1 EACH TAB PO SCH ×2 (07:44→19:47)
--- NOTE | 2018-11-09 11:53 | P.PN ---
Progress Note - Text Date:11/08] Time:1546 Patient is status post . Patient seen this morning with VAS score of 2.no c/o of pruritus, no c/o nausea/vomiting, comfortable and doing well.
[2018-11-10] MEDS: HYDROcodone/APAP 7.5-325MG 1 EACH TAB PO PRN ×2 (03:11→07:50)
[2018-11-10] MEDS: IBUPROFEN 600 MG TAB PO PRN ×2 (13:11→23:49)
[2018-11-10] MEDS: SENNOSIDES-DOCUSATE SODIUM 1 EACH TAB PO SCH (13:12)
[2018-11-11 01:20] VITALS: RESP 16
[2018-11-11] MEDS: SENNOSIDES-DOCUSATE SODIUM 1 EACH TAB PO SCH ×2 (01:20→08:02)
--- NOTE | 2018-11-11 05:35 | P.PNOBGPC ---
Subjective - Subjective Principal diagnosis: Status post primary low transverse postoperative day #2 Interval history: Patient seen and examined. Denies nausea, vomiting or chest pain, shortness of breath or calf pain. Patient reports: Reports appetite normal, Reports voiding normally, Reports pain well controlled, Reports ambulating normally [place]: doing well Objective - Vital Signs Latest vital signs: Vital Signs Temp Pulse Resp BP Pulse Ox 11/11/18 00:00 98.5 F 79 16 123/86 96 11/10/18 16:00 98 F 74 15 144/78 11/10/18 08:00 98 F 67 15 132/68 97 - Exam Lungs: bilateral: normal Chest: Normal S1, Normal S2 Extremities: Present: normal Abdomen: Present: normal appearance, soft. Absent: distention, tenderness Incision: Present: normal, dry, intact Uterus: Present: normal, firm Assessment and Plan (1) Status post primary low transverse section Current Visit: Yes Status: Acute Code(s): Z98.891 - HISTORY OF UTERINE SCAR FROM PREVIOUS SURGERY SNOMED Code(s): 386285800 Plan: 1. Increase ambulation 2. Work with a human resource consultant for breast-feeding 3. Continue postoperative care
--- NOTE | 2018-11-11 06:13 | P.DS ---
Providers Date of admission: 11/05/18 16:06 Expected date of discharge: 11/11/18 Attending physician: Ni Grayson Primary care physician: Ni Grayson - Discharge Diagnosis(es) (1) Status post primary low transverse section Current Visit: Yes Status: Acute Hospital Course: Pt presented for induction of labor for gestational hypertension. She underwent a primary low transverse for failure of induction. Her postop course was uncomplicated. HEr pain is controlled, her incision is intact and healing well, she is ambulating and voiding without difficulty and has had a bowel movement. She will be discharged home POD #3 in stable condition to follow up with me in 1 week. Plan - Discharge Summary New Discharge Prescriptions: New Ibuprofen [Motrin] 600 mg PO Q6HR PRN #30 tab PRN Reason: Mild Pain Or Fever >= 100.5 HYDROcodone/APAP 7.5-325MG [Lipan 7.5-325] 1 each PO Q4H PRN #18 tab PRN Reason: Severe Pain No Action Montelukast Sodium [Singulair] 10 mg PO HS Fluticasone/Vilanterol [Breo Ellipta 100-25 Mcg Inhaler] 1 puff INHALATION RT-DAILY Fexofenadine HCl [Sabrina Allergy] 60 tab PO DAILY Pnv,Calcium 72/Iron/Folic Acid [ Plus Tablet] 1 each PO DAILY Discharge Medication List Montelukast Sodium [Singulair] 10 mg PO HS 10/07/13 [History] Fluticasone/Vilanterol [Breo Ellipta 100-25 Mcg Inhaler] 1 puff INHALATION RT- DAILY 11/20/17 [History] Fexofenadine HCl [Sabrina Allergy] 60 tab PO DAILY 09/20/18 [History] Pnv,Calcium 72/Iron/Folic Acid [ Plus Tablet] 1 each PO DAILY 11/01/18 [History] HYDROcodone/APAP 7.5-325MG [Lipan 7.5-325] 1 each PO Q4H PRN #18 tab 11/11/18 [Rx] Ibuprofen [Motrin] 600 mg PO Q6HR PRN #30 tab 11/11/18 [Rx] Follow up Appointment(s)/Referral(s): Ni Grayson DO [Primary Care Provider] - 1 Week Discharge Disposition: HOME SELF-CARE
[2018-11-11 07:50] VITALS: BP 118/71; PULSE 67; TEMP 98.2
== END 2018-11-11 15:39 | disposition home or self-care (01) | DRG 788 ==
LOC: 4FBP 16:06
PROVIDERS: ADMIT Obstetrics & Gynecology; ATTEND Obstetrics & Gynecology
PROC: 10907ZC Drainage of Amniotic Fluid, Therapeutic from Products of Conception, Via Natural or Artificial Opening (ICD-10-PCS; 2018-11-07)
PROC: 3E0P7VZ Introduction of Hormone into Female Reproductive, Via Natural or Artificial Opening (ICD-10-PCS; 2018-11-07)
PROC: 3E033VJ Introduction of Other Hormone into Peripheral Vein, Percutaneous Approach (ICD-10-PCS; 2018-11-07)
PROC: 10D00Z1 Extraction of Products of Conception, Low, Open Approach (ICD-10-PCS; principal; 2018-11-07 04:40)
DX: O13.4 Gestational [pregnancy-induced] hypertension without significant proteinuria, complicating childbirth (principal); O61.9 Failed induction of labor, unspecified; O99.344 Other mental disorders complicating childbirth; F41.9 Anxiety disorder, unspecified; O99.52 Diseases of the respiratory system complicating childbirth; J45.909 Unspecified asthma, uncomplicated; O99.72 Diseases of the skin and subcutaneous tissue complicating childbirth; L29.9 Pruritus, unspecified; O99.824 Streptococcus B carrier state complicating childbirth; Z37.0 Single live birth; Z3A.37 37 weeks gestation of pregnancy; Z79.899 Other long term (current) drug therapy; Z83.3 Family history of diabetes mellitus
CPT/HCPCS: 85025; 86850; 86900; 86901; 88307

== ENCOUNTER → 2019-03-19 | Day surgery (SDC) | payer BC ==
[2019-03-16 15:41] VITALS: BMI 48.0
[~2019-03-19] MED LIST: BUPIVACAINE (PF) 0.25% 30 ML VIAL SQ ONE; DEXAMETHASONE SOD PHOSPHATE 10 MG/ML 1 ML VIAL IV ONE; GLYCOPYRROLATE 0.2 MG/ML 2 ML VIAL ONE; HEPARIN SODIUM,PORCINE 5,000 UNIT/ML 1 ML VIAL SQ ONE; HYDROmorphone 0.5 MG/0.5 ML SYRINGE IVP PRN; KETOROLAC 30 MG/ML 1 ML VIAL ONE; LACTATED RINGERS 1,000 ML IV ONE; LACTATED RINGERS 1,000 ML IV SCH; LIDOCAINE 1% 20 ML VIAL (10MG/ML) FOR IV START INTRADERMA PRN; LIDOCAINE 1% INJ 10MG/ML (20 ML MDV) ONE; MIDAZOLAM 2 MG/2 ML VIAL IV PRN; MIDAZOLAM 2 MG/2 ML VIAL ONE; NEOSTIGMINE 1 MG/ML 10 ML VIAL ONE; ONDANSETRON 4 MG/2 ML VIAL IVP ONE; PROPOFOL 10 MG/ML 20 ML VIAL IV ONE; ROCURONIUM BROMIDE 10 MG/ML 10 ML VIAL IV ONE; SCOPOLAMINE 1.5MG/72HR PATCH TRANSDERM ONE; ceFAZolin 3 GM in SODIUM CHLORIDE 0.9% 100 ML IVPB ONE; fentaNYL (PF) 50 MCG/ML 2 ML AMP ONE
[2019-03-19 08:23] VITALS: RESP 16
--- NOTE | 2019-03-19 08:38 | P.GSHP ---
History of Present Illness H&P Date: 03/19/19 Chief Complaint: Right upper quadrant pain This is a 28-year-old female who has cholesterol quadrant pain. Her recent workup shows evidence of cholelithiasis. She presents today for laparoscopic cholecystectomy. Past Medical History Past Medical History: Asthma Additional Past Medical History / Comment(s): Obstetrics history: This is her first and she's had care with me since the first trimester. Blood type O+, antibodies negative, Hepatitis B negative, treponema antibody nonreactive, rubella immune, GBS positive. Her post pressure started to increase in the third trimester up to 140s 150s over 80s to 90s. She did not require any medication and eclamptic labs have always remains within normal limits. BPP's and NSTs were followed. History of Any Multi-Drug Resistant Organisms: None Reported Past Surgical History: Section Additional Past Surgical History / Comment(s): chin surgery, age 10 Past Anesthesia/Blood Transfusion Reactions: No Reported Reaction Past Psychological History: No Psychological Hx Reported Smoking Status: Never smoker Past Alcohol Use History: None Reported Past Drug Use History: None Reported - Past Family History Father Family Medical History: Diabetes Mellitus Additional Family Medical History / Comment(s): "heart problems" Mother Family Medical History: No Reported History Medications and Allergies Home Medications Medication Instructions Recorded Confirmed Type Montelukast Sodium [Singulair] 10 mg PO HS 10/07/13 03/19/19 History Fluticasone/Vilanterol [Breo 1 puff INHALATION RT-DAILY 11/20/17 03/19/19 History Ellipta 100-25 Mcg Inhaler] Pnv,Calcium 72/Iron/Folic Acid 1 each PO DAILY 11/01/18 03/16/19 History [ Plus Tablet] Cetirizine HCl [Zyrtec] 10 mg PO DAILY 03/16/19 03/19/19 History Fluticasone Nasal [place] [Flonase 1 spray EA NOSTRIL DAILY 03/16/19 03/19/19 History Nasal [place]] Allergies Allergy/AdvReac Type Severity Reaction Status Date / Time No Known Allergies Allergy Verified 03/16/19 15:33 Surgical - Exam Vital Signs Temp Pulse Resp BP Pulse Ox 97.3 F L 77 16 162/81 97 03/19/19 08:20 03/19/19 08:20 03/19/19 08:20 03/19/19 08:20 03/19/19 08:20 - General well developed, well nourished, no distress - Eyes PERRL - ENT normal pinna - Neck no masses - Respiratory normal expansion - Cardiovascular Rhythm: regular - Abdomen Abdomen: soft, non tender Assessment and Plan Assessment: Recurrent pain Cholelithiasis We'll perform laparoscopic cholecystectomy.
--- NOTE | 2019-03-19 10:17 | P.OP ---
Date of Procedure: 03/19/19 Preoperative Diagnosis: Cholecystitis Postoperative Diagnosis: Cholecystitis Procedure(s) Performed: Laparoscopic cholecystectomy Anesthesia: BIB Surgeon: Luan uBrgos Estimated Blood Loss (ml): 5 Pathology: other (Gallbladder) Condition: stable Disposition: PACU Description of Procedure: The patient was placed on the operating table. The patient received a general endotracheal tube anesthesia. The patients abdomen was prepped and draped in the usual sterile fashion. Through an infraumbilical stab incision, the fascia of the anterior abdominal wall was grasped with a pair of Kochers and then the Veress needle was placed in the peritoneal cavity. Position of the Veress needle was confirmed with positive drop test. The abdomen was then insufflated. After adequate insufflation, the 10 mm trocar was placed in the peritoneal cavity. Following this the laparoscope was placed in the peritoneal cavity. The patient was placed in the head-up, right side up position and then a 5 mm trocar was placed in the right lateral and right subcostal position under direct visualization. A 8 mm trocar was placed in the epigastric position. The gallbladder was grasped in the fundus and infundibulum. Traction on the gallbladder was placed in the lateral and the cephalad positions. The triangle of Calot was visualized.. The cystic duct was bluntly dissected until the union of the cystic duct and common bile duct was seen. A critical view of safety was achieved. The cystic duct was then divided and sealed with the Harmonic scissors. A PDS Endoloop was then placed throughout the cystic duct stump. The cystic artery divided and sealed with the Harmonic scissors. The gallbladder was then removed from the liver bed using Harmonic scissors. The gallbladder was then extracted through the epigastric port site. Operative field was checked for any bleeding spots and Harmonic scissors was used to coagulate the liver bed. The abdomen was irrigated. The trocars were removed. The skin was closed using interrupted 3-0 Vicryl suture. Dermabond dressing were applied. The patient tolerated the procedure well.
[2019-03-19 10:31] VITALS: TEMP 97.5
[2019-03-19] MEDS: diphenhydrAMINE 50 MG/ML 1 ML VIAL IVP ONE ×2 (10:46→10:52)
[2019-03-19 12:20] VITALS: BP 128/82; PULSE 63
== END | disposition home or self-care (01) ==
LOC: OR 07:49
PROVIDERS: ATTEND Surgery
DX: K80.10 Calculus of gallbladder with chronic cholecystitis without obstruction (principal); J45.909 Unspecified asthma, uncomplicated; E66.01 Morbid (severe) obesity due to excess calories; Z68.42 Body mass index [BMI] 45.0-49.9, adult; Z83.3 Family history of diabetes mellitus; Z79.899 Other long term (current) drug therapy
CPT/HCPCS: 47562; 81025; 88304; J2250; J1200; J1644; J1100; J2710; J0690; J2405; J2001; J3010; J1885; J2704

== ENCOUNTER 2019-03-31 14:09 | Emergency (ER) | payer BC ==
[2019-03-31 14:35] VITALS: TEMP 97.9
--- NOTE | 2019-03-31 17:11 | ED ---
Abdominal Pain HPI - General Chief Complaint: Abdominal Pain Stated Complaint: abdominal pain Time Seen by Provider: 03/31/19 15:46 Source: patient Mode of arrival: ambulatory Limitations: no limitations - History of Present Illness Initial Comments: Patient is a 28-year-old female presenting to emergency Department with complaints of right upper quadrant pain that happened today. Patient is 2 weeks s/p cholecystectomy by Dr. Burgos. Patient states she has been healing well and is having very minimal discomfort since the surgery. Patient states however today she had a sharp right upper quadrant pain followed by a little bit of nausea. Patient states the pain continued at work and she was concerned and came to the ER. Patient states upon arrival to the ER her pain has now diminished to nothing. Patient states she no longer feels nauseous Patient denies recent fever, chills. Patient has been eating and drinking as normal since the surgery. Patient has no other complaints at this time. Upon arrival to the ER, vital signs are stable. MD Complaint: abdominal pain - Related Data Home Medications Medication Instructions Recorded Confirmed Montelukast Sodium [Singulair] 10 mg PO HS 10/07/13 03/19/19 Fluticasone/Vilanterol [Breo 1 puff INHALATION RT-DAILY 11/20/17 03/19/19 Ellipta 100-25 Mcg Inhaler] Pnv,Calcium 72/Iron/Folic Acid 1 each PO DAILY 11/01/18 03/16/19 [ Plus Tablet] Cetirizine HCl [Zyrtec] 10 mg PO DAILY 03/16/19 03/19/19 Fluticasone Nasal [place] [Flonase 1 spray EA NOSTRIL DAILY 03/16/19 03/19/19 Nasal [place]] Previous Rx's Medication Instructions Recorded Docusate [Colace] 100 mg PO BID #20 capsule 03/19/19 HYDROcodone/APAP 5-325MG [[place] 1 tab PO Q6HR PRN #10 tab 03/19/19 5-325] Allergies Allergy/AdvReac Type Severity Reaction Status Date / Time No Known Allergies Allergy Verified 03/31/19 14:35 Review of Systems ROS Statement: Those systems with pertinent positive or pertinent negative responses have been documented in the HPI. ROS Other: All systems not noted in ROS Statement are negative. Past Medical History Past Medical History: Asthma Additional Past Medical History / Comment(s): Obstetrics history: This is her first and she's had care with me since the first trimester. Blood type O+, antibodies negative, Hepatitis B negative, treponema antibody nonreactive, rubella immune, GBS positive. Her post pressure started to increase in the third trimester up to 140s 150s over 80s to 90s. She did not require any medication and eclamptic labs have always remains within normal limits. BPP's and NSTs were followed. History of Any Multi-Drug Resistant Organisms: None Reported Past Surgical History: Section, Cholecystectomy Additional Past Surgical History / Comment(s): chin surgery, age 10 Past Anesthesia/Blood Transfusion Reactions: No Reported Reaction Past Psychological History: No Psychological Hx Reported Smoking Status: Never smoker Past Alcohol Use History: None Reported Past Drug Use History: None Reported - Past Family History Father Family Medical History: Diabetes Mellitus Additional Family Medical History / Comment(s): "heart problems" Mother Family Medical History: No Reported History General Exam - General Exam Comments Initial Comments: GENERAL: Well-appearing, well-nourished and in no acute distress. HEAD: Atraumatic, normocephalic. EYES: Pupils equal round and reactive to light, extraocular movements intact, sclera anicteric, conjunctiva are normal. ENT: TNares patent, oropharynx clear without exudates. Moist mucous membranes. NECK: Normal range of motion, supple without lymphadenopathy or JVD. LUNGS: Breath sounds clear to auscultation bilaterally and equal. No wheezes rales or rhonchi. HEART: Regular rate and rhythm without murmurs, rubs or gallops. ABDOMEN: Mild tenderness to right upper quadrant. Soft, normoactive bowel sounds. No guarding, no rebound. No masses appreciated. EXTREMITIES: Normal range of motion, no pitting or edema. No clubbing or cyanosis. NEUROLOGICAL: Cranial nerves II through XII grossly intact. Normal speech, normal gait. PSYCH: Normal mood, normal affect. SKIN: Warm, Dry, normal turgor, no rashes or lesions noted. Limitations: no limitations Course Vital Signs 03/31/19 03/31/19 14:31 18:25 Temperature 97.9 F 97.9 F Pulse Rate 93 89 Respiratory 20 18 Rate Blood Pressure 137/93 131/74 O2 Sat by Pulse 98 Oximetry Medical Decision Making - Medical Decision Making Patient is a 28-year-old female presenting with an acute onset of right upper quadrant pain that started at work today. Patient currently has no pain upon arrival to ER. Patient had cholecystectomy performed [address] Burgos. Patient's exam is unremarkable except for some very mild right upper quadrant soreness. Lab work today shows a very mild leukocytosis at 13.2, elevated LFTs: AST 158, ALT 75, alk phos 171. UA is normal. Vital signs have remained stable. On reexam patient continues to have no pain. He was discussed with patient that she is stable for discharge today. I recommended the patient to have liver enzymes rechecked approximately 2-3 days. Outpatient lab slip was given to the patient today. Patient will follow up with Dr. Burgos as needed for increase in her symptoms. Case was discussed with Dr. Martin who agrees with this plan of care. Return parameters were discussed with the patient and she verbalized understanding. - Lab Data Result diagrams: 03/31/19 16:55 03/31/19 16:55 Lab Results 03/31/19 03/31/19 03/31/19 Range/Units 16:55 16:55 16:55 WBC 13.2 H (3.8-10.6) k/uL RBC 5.23 (3.80-5.40) m/uL Hgb 14.2 (11.4-16.0) gm/dL Hct 43.0 (34.0-46.0) % MCV 82.2 (80.0-100.0) fL MCH 27.1 (25.0-35.0) pg MCHC 33.0 (31.0-37.0) g/dL RDW 13.5 (11.5-15.5) % Plt Count 445 (150-450) k/uL Neutrophils % 76 % Lymphocytes % 16 % Monocytes % 5 % Eosinophils % 1 % Basophils % 1 % Neutrophils # 10.1 H (1.3-7.7) k/uL Lymphocytes # 2.2 (1.0-4.8) k/uL Monocytes # 0.6 (0-1.0) k/uL Eosinophils # 0.1 (0-0.7) k/uL Basophils # 0.1 (0-0.2) k/uL Sodium 140 (137-145) mmol/L Potassium 3.9 (3.5-5.1) mmol/L Chloride 106 (98-107) mmol/L Carbon Dioxide 25 (22-30) mmol/L Anion Gap 9 mmol/L BUN 10 (7-17) mg/dL Creatinine 0.73 (0.52-1.04) mg/dL Est GFR (CKD-EPI)AfAm >90 (>60 ml/min/1.73 sqM) Est GFR (CKD-EPI)NonAf >90 (>60 ml/min/1.73 sqM) Glucose 110 H (74-99) mg/dL Calcium 9.4 (8.4-10.2) mg/dL Total Bilirubin 0.8 (0.2-1.3) mg/dL AST 150 H (14-36) U/L ALT 75 H (9-52) U/L Alkaline Phosphatase 171 H (38-126) U/L Total Protein 7.2 (6.3-8.2) g/dL Albumin 4.1 (3.5-5.0) g/dL Amylase 77 (30-110) U/L Lipase 253 (23-300) U/L Urine Color Yellow Urine Appearance Clear (Clear) Urine pH 5.5 (5.0-8.0) Ur Specific [place] 1.023 (1.001-1.035) Urine Protein Negative (Negative) Urine Glucose (UA) Negative (Negative) Urine Ketones Negative (Negative) Urine Blood Negative (Negative) Urine Nitrite Negative (Negative) Urine Bilirubin Negative (Negative) Urine Urobilinogen <2.0 (<2.0) mg/dL Ur Leukocyte Esterase Negative (Negative) Disposition Clinical Impression: Right upper quadrant pain Disposition: HOME SELF-CARE Condition: Stable Instructions (If sedation given, give patient instructions): Abdominal Pain (ED) Additional Instructions: Please return to the Emergency Department if symptoms worsen or any other concerns. Follow-up with Dr. Burgos as discussed. Repeat liver enzymes. Is patient prescribed a controlled substance at d/c from ED?: No Referrals: Isabella Husain DO [Primary Care Provider] - 1-2 days Luan Burgos MD [STAFF PHYSICIAN] - 1-2 days
[2019-03-31 17:18] LABS: ALT 75 U/L (9-52); AST 150 U/L (14-36); African American GFR (CKD) >90 (>60 ml/min/1.73 sqM); Albumin 4.1 g/dL (3.5-5.0); Alkaline Phosphatase 171 U/L (38-126); Amylase 77 U/L (30-110); Anion Gap 9 mmol/L; Blood Urea Nitrogen 10 mg/dL (7-17); Calcium 9.4 mg/dL (8.4-10.2); Carbon Dioxide 25 mmol/L (22-30); Chloride 106 mmol/L (98-107); Glucose 110 mg/dL (74-99); Potassium 3.9 mmol/L (3.5-5.1); Sodium 140 mmol/L (137-145); Total Bilirubin 0.8 mg/dL (0.2-1.3); Total Protein 7.2 g/dL (6.3-8.2)
[2019-03-31 17:22] LABS: Appearance,Urine Clear (Clear); Bilirubin,Urine Negative (Negative); Blood,Urine Negative (Negative); Color,Urine Yellow; Glucose,Urine (UA) Negative (Negative); Ketones,Urine Negative (Negative); Leukocyte Esterase,Urine Negative (Negative); Nitrite,Urine Negative (Negative); PH, Urine 5.5 (5.0-8.0); Protein,Urine Negative (Negative); Specific Gravity,Urine 1.023 (1.001-1.035); Urobilinogen,Urine <2.0 mg/dL (<2.0)
[2019-03-31 17:29] LABS: Basophils # (A) 0.1 k/uL (0-0.2); Basophils % (A) 1 %; Eosinophils # (A) 0.1 k/uL (0-0.7); Eosinophils % (A) 1 %; HGB 14.2 gm/dL (11.4-16.0); Lymphocytes # (A) 2.2 k/uL (1.0-4.8); Lymphocytes % (A) 16 %; MCH 27.1 pg (25.0-35.0); MCV 82.2 fL (80.0-100.0); Mean Platelet Volume 6.2; Monocytes # (A) 0.6 k/uL (0-1.0); Monocytes % (A) 5 %; Neutrophils # (A) 10.1 k/uL (1.3-7.7); Neutrophils % (A) 76 %; Platelet Count 445 k/uL (150-450); RBC 5.23 m/uL (3.80-5.40); RDW 13.5 % (11.5-15.5); WBC 13.2 k/uL (3.8-10.6)
[2019-03-31 18:28] VITALS: BP 131/74; PULSE 89; RESP 18
== END 2019-03-31 18:25 | disposition home or self-care (01) ==
LOC: EC 14:09
DX: D72.829 Elevated white blood cell count, unspecified (principal); R74.8 Abnormal levels of other serum enzymes; R74.0 Nonspecific elevation of levels of transaminase and lactic acid dehydrogenase [LDH]; J45.909 Unspecified asthma, uncomplicated; Z90.49 Acquired absence of other specified parts of digestive tract; Z79.51 Long term (current) use of inhaled steroids; Z79.899 Other long term (current) drug therapy
CPT/HCPCS: 36415; 80053; 81003; 82150; 83690; 85025; 99284

== ENCOUNTER → 2019-04-06 | Outpatient (CLI) | payer BC ==
[2019-04-07 00:11] LABS: ALT 66 U/L (8-44); AST 17 U/L (13-35); Alkaline Phosphatase 158 U/L (41-126); Bilirubin, Conjugated <0.20 mg/dL (0.20-0.40); Globulin 2.1 g/dL (1.6-3.3); Total Bilirubin 0.3 mg/dL (0.2-1.2); Total Protein 6.5 g/dL (6.2-8.2)
== END | disposition home or self-care (01) ==
LOC: LABWHC1 15:15
PROVIDERS: ATTEND Specialist/Technologist Athletic Trainer
DX: R79.89 Other specified abnormal findings of blood chemistry (principal)
CPT/HCPCS: 36415; 80076

== ENCOUNTER → 2022-05-23 | Outpatient (CLI) | payer BC ==
[2022-05-23 18:31] LABS: HCT 41.8 % (37.2-46.3); HGB 12.6 g/dL (12.0-15.0); MCH 23.2 pg (27.0-32.0); MCHC 30.1 g/dL (32.0-37.0); MCV 76.8 fL (80.0-97.0); Mean Platelet Volume 9.8 fL (9.5-12.2); NRBC Per 100 WBC 0 /100 WBCS (0.0-0.0); Platelet Count 438 X 10*3/uL (140-440); RBC 5.44 X 10*6/uL (4.10-5.20); RDW 15.4 % (11.5-14.5)
[2022-05-23 18:53] LABS: ALT 21 U/L (8-44); AST 17 U/L (13-35); African American GFR (CKD) 131.9 (60.0-200.0); Albumin 4.3 g/dL (3.8-4.9); Albumin/Globulin Ratio 1.72 (1.60-3.17); Alkaline Phosphatase 133 U/L (41-126); Blood Urea Nitrogen 6.3 mg/dL (9.0-27.0); Calcium 9.4 mg/dL (8.7-10.3); Carbon Dioxide 23.2 mmol/L (20.0-27.5); Chloride 106 mmol/L (96-109); Chol/HDL Ratio 2.49 Ratio; Globulin 2.5 g/dL (1.6-3.3); Glucose 88 mg/dL (70-110); LDL Cholesterol,Calculated 84.4 mg/dL (0.0-131.0); Non-African American GFR(CKD) 113.8 (60.0-200.0); Potassium 4.9 mmol/L (3.5-5.5); Sodium 140 mmol/L (135-145); Total Protein 6.8 g/dL (6.2-8.2)
== END | disposition home or self-care (01) ==
LOC: LABWHC1 11:23
PROVIDERS: ATTEND Physician Assistant Medical
DX: E66.01 Morbid (severe) obesity due to excess calories (principal); J45.41 Moderate persistent asthma with (acute) exacerbation; F41.1 Generalized anxiety disorder; Z68.43 Body mass index [BMI] 50.0-59.9, adult
CPT/HCPCS: 36415; 80053; 80061; 84443; 85027

== ENCOUNTER 2023-10-05 05:18 | Emergency (ER) | payer BC ==
[2023-10-05 05:30] VITALS: RESP 18; TEMP 98.1
--- NOTE | 2023-10-05 05:52 | ED ---
General Adult HPI - General Source: patient, RN notes reviewed, old records reviewed Mode of arrival: ambulatory Limitations: no limitations <Shaq Steel - Last Filed: 10/05/23 06:39> <Edmond Perez - Last Filed: 10/05/23 08:51> - General Chief complaint: Urogenital Stated complaint: Vaginal pain Time Seen by Provider: 10/05/23 05:32 - History of Present Illness Initial comments: 33-year-old female presenting with suprapubic pain, urinary frequency and urgency. Symptoms began this morning. No associated fever. No vomiting. No abdominal pain. Patient states her last menstrual cycle ended several days ago. No vaginal bleeding. (Shaq Steel) - Related Data Home Medications Medication Instructions Recorded Confirmed Montelukast Sodium [Singulair] 10 mg PO HS 10/07/13 03/19/19 Fluticasone/Vilanterol [Breo 1 puff INHALATION RT-DAILY 11/20/17 03/19/19 Ellipta 100-25 Mcg Inhaler] Vit No.180/Iron/Folic 1 each PO DAILY 11/01/18 03/16/19 [ Plus Tablet] Cetirizine HCl [Zyrtec] 10 mg PO DAILY 03/16/19 03/19/19 Fluticasone Nasal [place] [Flonase 1 spray EA NOSTRIL DAILY 03/16/19 03/19/19 Nasal [place]ki] Previous Rx's Medication Instructions Recorded Docusate [Colace] 100 mg PO BID #20 capsule 03/19/19 HYDROcodone/APAP 5-325MG [Dodge 1 tab PO Q6HR PRN #10 tab 03/19/19 5-325] Ketorolac [Toradol] 10 mg PO Q6HR #15 tab 10/05/23 Tamsulosin [Flomax] 0.4 mg PO DAILY #10 cap 10/05/23 Allergies Allergy/AdvReac Type Severity Reaction Status Date / Time No Known Allergies Allergy Verified 03/31/19 14:35 Review of Systems ROS Other: All systems not noted in ROS Statement are negative. <Shaq Steel - Last Filed: 10/05/23 06:39> ROS Other: All systems not noted in ROS Statement are negative. <Edmond Perez - Last Filed: 10/05/23 08:51> ROS Statement: Those systems with pertinent positive or pertinent negative responses have been documented in the HPI. Past Medical History Past Medical History: Asthma Additional Past Medical History / Comment(s): Obstetrics history: This is her first and she's had care with me since the first trimester. Blood type O+, antibodies negative, Hepatitis B negative, treponema antibody nonreactive, rubella immune, GBS positive. Her post pressure started to incre ase in the third trimester up to 140s 150s over 80s to 90s. She did not require any medication and eclamptic labs have always remains within normal limits. BPP's and NSTs were followed. History of Any Multi-Drug Resistant Organisms: None Reported Past Surgical History: Section, Cholecystectomy Additional Past Surgical History / Comment(s): chin surgery, age 10 Past Anesthesia/Blood Transfusion Reactions: No Reported Reaction Past Psychological History: No Psychological Hx Reported Past Alcohol Use History: None Reported Past Drug Use History: None Reported - Past Family History Father Family Medical History: Diabetes Mellitus Additional Family Medical History / Comment(s): "heart problems" Mother Family Medical History: No Reported History <Shaq Steel N - Last Filed: 10/05/23 06:39> General Exam Limitations: no limitations General appearance: alert, in no apparent distress Head exam: Present: atraumatic, normocephalic Eye exam: Present: normal appearance, PERRL ENT exam: Present: normal exam Neck exam: Present: normal inspection Respiratory exam: Present: normal lung sounds bilaterally. Absent: respiratory distress, wheezes Cardiovascular Exam: Present: regular rate, normal rhythm GI/Abdominal exam: Present: soft. Absent: distended, tenderness, guarding Extremities exam: Present: normal inspection, normal capillary refill Neurological exam: Present: alert, oriented X3 Psychiatric exam: Present: normal affect, normal mood Skin exam: Present: warm, dry, intact. Absent: cyanosis, diaphoretic <Shaq Steel - Last Filed: 10/05/23 06:39> Course Vital Signs 10/05/23 05:21 Temperature 98.1 F Pulse Rate 105 H Respiratory 18 Rate Blood Pressure 170/102 O2 Sat by Pulse 100 Oximetry Medical Decision Making <Shaq Steel - Last Filed: 10/05/23 06:39> - Lab Data Result diagrams: 10/05/23 06:49 10/05/23 06:49 <Edmond Perez - Last Filed: 10/05/23 08:51> - Medical Decision Making Was pt. sent in by a medical professional or institution (JEFF Pedersen, SENIOR PROCUREMENT MANAGER, urgent care, hospital, or detention...) When possible be specific @ -No Did you speak to anyone other than the patient for history (EMS, parent, family, police, friend...)? What history was obtained from this source @ -No Did you review nursing and triage notes (agree or disagree)? Why? @ -I reviewed and agree with nursing and triage notes Were old charts reviewed (outside hosp., previous admission, EMS record, old EKG, old radiological studies, urgent care reports/EKG's, detention records)? Report findings @ -No old charts were reviewed Differential Abdominal Pain Women: Appendicitis, Cholecystitis, diverticulosis, ischemic bowel, pancreatitis, hepatitis, UTI, gastroenteritis, AAA, incarcerated hernia, bowel obstruction, constipation, inflammatory bowel, hepatitis, peptic ulcer disease, splenic infarction, perforated viscus, vulvitis, ovarian torsion, PID, kidney stone, pl acenta abruption, this is not meant to be an all-inclusive list EKG interpreted by me (3pts min.). @ -As above X-rays interpreted by me (1pt min.). @ -None done CT interpreted by me (1pt min.). @CT abdomen/pelvis without contrast pending U/S interpreted by me (1pt. min.). @ -None done What testing was considered but not performed or refused? (CT, X-rays, U/S, labs)? Why? @ -None What meds were considered but not given or refused? Why? @ -None Did you discuss the management of the patient with other professionals (professionals i.e. JEFF Pedersen, SENIOR PROCUREMENT MANAGER, lab, RT, psych nurse, social professionals, precision honing machine operator, teacher, [employer]oc airspace control officer, correctional case manager)? Give summary @ -No Was smoking cessation discussed for >3mins.? @ -No Was critical care preformed (if so, how long)? @ -No Were there social determinants of health that impacted care today? How? (Homelessness, low income, unemployed, alcoholism, drug addiction, transportation, low edu. Level, literacy, decrease access to med. care, usp, rehab)? @ -No Was there de-escalation of care discussed even if they declined (Discuss DNR or withdrawal of care, Hospice)? DNR status @ -No What co-morbidities impacted this encounter? (DM, HTN, Smoking, COPD, CAD, Cancer, CVA, ARF, Chemo, Hep., AIDS, mental health diagnosis, sleep apnea, morbid obesity)? @ -None Was patient admitted / discharged? Hospital course, mention meds given and route, prescriptions, significant lab abnormalities, going to OR and other pertinent info. @ -33-year-old female with suprapubic pain, urinary frequency and urgency. Patient has urinalysis showing greater than 182 red cells. Should her pain does worsen while in the emergency department and laboratory testing as well as CT imaging is ordered, these results are pending. Care signed out at shift change to Dr. Perez awaiting reevaluation and test results. (Shaq Steel) Was patient admitted / discharged? Hospital course, mention meds given and route, prescriptions, significant lab abnormalities, going to OR and other pertinent info. @ -Patient was signed out to me by Dr. Burton at 7 AM. Patient's CAT scan came back and is interpreted by myself patient has a 3 mm stone on the left side. I went in to reevaluate the patient she was pain-free at this time patient will be sent home Undiagnosed new problem with uncertain prognosis? @ -No Drug Therapy requiring intensive monitoring for toxicity (Heparin, Nitro, Insulin, Cardizem)? @ -No Were any procedures done? @ -No Diagnosis/symptom? @ -Default Acute, or Chronic, or Acute on Chronic? @ -Kidney stone acute Uncomplicated (without systemic symptoms) or Complicated (systemic symptoms)? @ -Complicate Side effects of treatment? @ -No Exacerbation, Progression, or Severe Exacerbation? @ -No Poses a threat to life or bodily function? How? (Chest pain, USA, VT, pneumonia, PE, COPD, DKA, ARF, appy, cholecystitis, CVA, Diverticulitis, Homicidal, Suicidal, threat to staff... and all critical care pts) @ -No (Edmond Perez) - Lab Data Lab Results 10/05/23 10/05/23 10/05/23 Range/Units 05:38 05:38 06:49 WBC 11.9 H (3.8-10.6) k/uL RBC 5.17 (3.80-5.40) m/uL Hgb 11.8 (11.4-16.0) gm/dL Hct 38.0 (34.0-46.0) % MCV 73.6 L (80.0-100.0) fL MCH 22.8 L (25.0-35.0) pg MCHC 30.9 L (31.0-37.0) g/dL RDW 15.9 H (11.5-15.5) % Plt Count 435 (150-450) k/uL MPV 7.3 Neutrophils % 64 % Lymphocytes % 27 % Monocytes % 5 % Eosinophils % 2 % Basophils % 1 % Neutrophils # 7.6 (1.3-7.7) k/uL Lymphocytes # 3.2 (1.0-4.8) k/uL Monocytes # 0.6 (0-1.0) k/uL Eosinophils # 0.3 (0-0.7) k/uL Basophils # 0.1 (0-0.2) k/uL Hypochromasia Slight Microcytosis Moderate Sodium (137-145) mmol/L Potassium (3.5-5.1) mmol/L Chloride (98-107) mmol/L Carbon Dioxide (22-30) mmol/L Anion Gap mmol/L BUN (7-17) mg/dL Creatinine (0.52-1.04) mg/dL Est GFR (CKD-EPI)AfAm (>60 ml/min/1.73 sqM) Est GFR (CKD-EPI)NonAf (>60 ml/min/1.73 sqM) Glucose (74-99) mg/dL Calcium (8.4-10.2) mg/dL Total Bilirubin (0.2-1.3) mg/dL AST (14-36) U/L ALT (4-34) U/L Alkaline Phosphatase (38-126) U/L Total Protein (6.3-8.2) g/dL Albumin (3.5-5.0) g/dL Urine Color Light Yellow Urine Appearance Cloudy H (Clear) Urine pH 5.5 (5.0-8.0) Ur Specific Franklin 1.022 (1.001-1.035) Urine Protein Negative (Negative) Urine Glucose (UA) Negative (Negative) Urine Ketones Negative (Negative) Urine Blood Moderate H (Negative) Urine Nitrite Negative (Negative) Urine Bilirubin Negative (Negative) Urine Urobilinogen <2.0 (<2.0) mg/dL Ur Leukocyte Esterase Negative (Negative) Urine RBC >182 H (0-5) /hpf Urine WBC 1 (0-5) /hpf Ur Squamous Epith Cells 5 H (0-4) /hpf Urine Mucus Occasional H (None) /hpf Urine Yeast (Budding) Few H (None) /hpf Urine HCG, Qual Not Detected (Not Detectd) 10/05/23 Range/Units 06:49 WBC (3.8-10.6) k/uL RBC (3.80-5.40) m/uL Hgb (11.4-16.0) gm/dL Hct (34.0-46.0) % MCV (80.0-100.0) fL MCH (25.0-35.0) pg MCHC (31.0-37.0) g/dL RDW (11.5-15.5) % Plt Count (150-450) k/uL MPV Neutrophils % % Lymphocytes % % Monocytes % % Eosinophils % % Basophils % % Neutrophils # (1.3-7.7) k/uL Lymphocytes # (1.0-4.8) k/uL Monocytes # (0-1.0) k/uL Eosinophils # (0-0.7) k/uL Basophils # (0-0.2) k/uL Hypochromasia Microcytosis Sodium 138 (137-145) mmol/L Potassium 4.2 (3.5-5.1) mmol/L Chloride 112 H (98-107) mmol/L Carbon Dioxide 20 L (22-30) mmol/L Anion Gap 6 mmol/L BUN 11 (7-17) mg/dL Creatinine 0.57 (0.52-1.04) mg/dL Est GFR (CKD-EPI)AfAm >90 (>60 ml/min/1.73 sqM) Est GFR (CKD-EPI)NonAf >90 (>60 ml/min/1.73 sqM) Glucose 94 (74-99) mg/dL Calcium 8.9 (8.4-10.2) mg/dL Total Bilirubin 0.4 (0.2-1.3) mg/dL AST 23 (14-36) U/L ALT 21 (4-34) U/L Alkaline Phosphatase 114 (38-126) U/L Total Protein 6.6 (6.3-8.2) g/dL Albumin 3.9 (3.5-5.0) g/dL Urine Color Urine Appearance (Clear) Urine pH (5.0-8.0) Ur Specific Franklin (1.001-1.035) Urine Protein (Negative) Urine Glucose (UA) (Negative) Urine Ketones (Negative) Urine Blood (Negative) Urine Nitrite (Negative) Urine Bilirubin (Negative) Urine Urobilinogen (<2.0) mg/dL Ur Leukocyte Esterase (Negative) Urine RBC (0-5) /hpf Urine WBC (0-5) /hpf Ur Squamous Epith Cells (0-4) /hpf Urine Mucus (None) /hpf Urine Yeast (Budding) (None) /hpf Urine HCG, Qual (Not Detectd) Disposition <Shaq Steel - Last Filed: 10/05/23 06:39> Is patient prescribed a controlled substance at d/c from ED?: No Time of Disposition: 08:49 <Edmond Perez - Last Filed: 10/05/23 08:51> Clinical Impression: Kidney stone Disposition: HOME SELF-CARE Condition: Good Instructions (If sedation given, give patient instructions): Kidney Stones (ED) Prescriptions: Tamsulosin [Flomax] 0.4 mg PO DAILY #10 cap Ketorolac [Toradol] 10 mg PO Q6HR #15 tab Referrals: Isabella Husain DO [Primary Care Provider] - 1-2 days
[2023-10-05 06:34] LABS: Appearance,Urine Cloudy (Clear); Bilirubin,Urine Negative (Negative); Blood,Urine Moderate (Negative); Budding Yeast,Urine Few /hpf; Color,Urine Light Yellow; Glucose,Urine (UA) Negative (Negative); Ketones,Urine Negative (Negative); Leukocyte Esterase,Urine Negative (Negative); Mucus,Urine Occasional /hpf; Nitrite,Urine Negative (Negative); PH, Urine 5.5 (5.0-8.0); Protein,Urine Negative (Negative); RBC,Urine >182 /hpf (0-5); Specific Gravity,Urine 1.022 (1.001-1.035); Squamous Epithelial Cell,Urine 5 /hpf (0-4); Urobilinogen,Urine <2.0 mg/dL (<2.0); WBC,Urine 1 /hpf (0-5)
[2023-10-05] MEDS: KETOROLAC 15 MG/ML 1 ML VIAL IVP STA (06:48)
[2023-10-05 07:01] LABS: Basophils # (A) 0.1 k/uL (0-0.2); Basophils % (A) 1 %; Eosinophils # (A) 0.3 k/uL (0-0.7); Eosinophils % (A) 2 %; HGB 11.8 gm/dL (11.4-16.0); Hypochromasia Slight; Lymphocytes # (A) 3.2 k/uL (1.0-4.8); Lymphocytes % (A) 27 %; MCH 22.8 pg (25.0-35.0); MCHC 30.9 g/dL (31.0-37.0); MCV 73.6 fL (80.0-100.0); Mean Platelet Volume 7.3; Microcytosis Moderate; Monocytes # (A) 0.6 k/uL (0-1.0); Monocytes % (A) 5 %; Neutrophils # (A) 7.6 k/uL (1.3-7.7); Neutrophils % (A) 64 %; Platelet Count 435 k/uL (150-450); RBC 5.17 m/uL (3.80-5.40); RDW 15.9 % (11.5-15.5); WBC 11.9 k/uL (3.8-10.6)
[2023-10-05 07:10] LABS: ALT 21 U/L (4-34); AST 23 U/L (14-36); African American GFR (CKD) >90 (>60 ml/min/1.73 sqM); Albumin 3.9 g/dL (3.5-5.0); Alkaline Phosphatase 114 U/L (38-126); Anion Gap 6 mmol/L; Blood Urea Nitrogen 11 mg/dL (7-17); Calcium 8.9 mg/dL (8.4-10.2); Carbon Dioxide 20 mmol/L (22-30); Chloride 112 mmol/L (98-107); Glucose 94 mg/dL (74-99); Non-African American GFR(CKD) >90 (>60 ml/min/1.73 sqM); Potassium 4.2 mmol/L (3.5-5.1); Sodium 138 mmol/L (137-145); Total Bilirubin 0.4 mg/dL (0.2-1.3); Total Protein 6.6 g/dL (6.3-8.2)
--- NOTE | 2023-10-05 07:37 | CT ---
EXAMINATION TYPE: CT abdomen pelvis wo con DATE OF EXAM: 10/05/2023 COMPARISON: 10/04/2023 HISTORY: 33-year-old female Suprapubic pain and hematuria CT DLP: 2210.4 mGycm. Automated exposure control for dose reduction was used. TECHNIQUE: Contiguous axial scanning of the abdomen and pelvis without IV contrast. Coronal and sagit doron reconstructions performed. FINDINGS: LUNG BASES: No significant abnormality is appreciated. LIVER/GB: Liver mildly enlarged at 18.5 cm. Gallbladder surgically absent. PANCREAS: No significant abnormality is seen. SPLEEN: Mildly enlarged at 14.0 cm. ADRENALS: No significant abnormality is seen. KIDNEYS: Mild asymmetric fullness left renal collecting system along with a 3 mm stone at the left UV J. LYMPH NODES: No significant abnormality is seen. BOWEL: No significant abnormality is seen. Mild stool burden. Normal appendix. Mild sigmoid divertic ulosis. OTHER: No significant abnormality is seen. PELVIS: Bladder not distended. Uterus anteverted. Both ovaries are visualized. Tiny left-sided pelvic phleboliths. No abnormal fluid collection in the pelvis or pelvic lymphadenopathy. BONES: No significant abnormality is seen. IMPRESSION: 1. A 3 mm stone at the left UVJ with minimal obstructive uropathy. 2. Hepatosplenomegaly (liver 18.5 cm and spleen 14.0 cm). 3. Mild sigmoid diverticulosis.
[2023-10-05] MEDS: ACET/COD 300 MG/30 MG STARTER PACK 6 TAB BTL PO STA (09:02)
[2023-10-05 09:45] VITALS: BP 133/99; PULSE 82
== END 2023-10-05 09:07 | disposition home or self-care (01) ==
LOC: EC 05:18
DX: K57.30 Diverticulosis of large intestine without perforation or abscess without bleeding (principal); N20.0 Calculus of kidney
CPT/HCPCS: 36415; 80053; 85025; 81001; 81025; 74176; 99284; 96374; J1885